=== PATIENT | female | born 2000 | race African-American/Black ===

== ENCOUNTER 2022-10-28 16:04 | Emergency (ER) | payer BC, OTHER ==
[2022-10-28 17:38] LABS: Pregnancy Test - Urine (BHCG) Negative (Negative); Pregu Control Background? CLEAR/WHITE (CLR/WHITE); Pregu Control Bar Appear? YES (CONTROL BAR); Specific Gravity 1.015 (1.002-1.036)
== END 2022-10-28 18:05 | disposition home or self-care (01) ==
LOC: CSHERS 16:04
DX: J06.9 Acute upper respiratory infection, unspecified (principal); R11.2 Nausea with vomiting, unspecified; Z20.822 Contact with and (suspected) exposure to COVID-19
CPT/HCPCS: 81025; 99283; U0003; U0005